=== PATIENT | male | born 1980 | race Caucasian/White ===

== ENCOUNTER 2022-08-15 13:46 | Emergency (ER) | payer OTHER ==
--- NOTE | 2022-08-15 16:24 | XRAY ---
Indication: Headache, dizziness, and blurred vision following head injury 4 days ago. Multiple contiguous axial images obtained through the head without contrast. Comparison: None Normal appearing brain parenchyma, ventricles, and bony calvarium. Moderate mucosal thickening right maxillary sinus with fluid leveling. Remaining visualized paranasal sinuses and mastoid air cells are clear. Impression: Normal CT head without contrast exam. Incidental right maxillary sinus disease.
[2022-08-15 16:27] VITALS: BP 106/58; PULSE 74; O2SAT 95
--- NOTE | 2022-08-15 19:23 | ERPHSYRPT ---
- History of Present Illness Time Seen by Provider: 08/15/22 15:00 Source: patient Exam Limitations: no limitations Patient Subjective Stated Complaint: PT HERE FOR DIZZINESS, HEADACHE, SINCE MONDAY AFTER A TREE BROKE AND LIMB FELL ON HIM, HE ALSO WAS HIT IN HEAD WITH SAW, HE WAS SEEN AT [facility] AND STATES HE MESSED UP HES [facility] SHOULDER Triage Nursing Assessment: PT ALERT, OREINTED, RESP EASY, WAS EATING A SNACK IN WAITING ROOM, WALKED BACK, GAIT STEADY, FACE MASK IN PLACE, HAS LEFT ARM IN A SLING, ABRASION SCABED OVER TO TOP OF HEAD Physician History: Patient a 42-year-old male presents to our ED for CT head. 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 Patient cut a log under pressure which recalled and hit his head and his left shoulder. Patient went to an [facility]. X-ray of left shoulder revealed a acromial clavicular injury. However they did not CT his head. Patient is upset that his head was not CT. Patient is complaining of mild low-grade headache and mild dizziness difficulty sleeping. Patient symptoms are consistent with a concussion. No loss of consciousness. No neck pain. Cervical spine cleared clinically. Patient has no other complaints. Symptoms are mild to moderate in intensity. Patient declined pain medication. He voices no other complaints or concerns at this time. Patient declined pain medication. Portions of this note were created with voice recognition technology. There may be grammatical, spelling, punctuation or sound alike errors Timing/Duration: day(s) Severity: moderate (5 days ago) Modifying Factors: Improves With: nothing Associated Symptoms: denies symptoms Allergies/Adverse Reactions: No Known Drug Allergies Allergy (Unverified 08/15/22 14:51) Home Medications: Sertraline HCl 1 ea DAILY 08/15/22 [History] Hx Tetanus, Diphtheria Vaccination/Date Given: No Hx Influenza Vaccination/Date Given: No Hx Pneumococcal Vaccination/Date Given: Yes Immunizations Up to Date: Yes Travel Risk - International Travel Have you traveled outside of the country in past 3 weeks: No - Coronavirus Screening Are you exhibiting any of the following symptoms?: No Close contact with a COVID-19 positive Pt in past 14-21 Days: No - Vaccine Status Have you recieved a Covid-19 vaccination: No - Review of Systems Constitutional: No Symptoms, No Fever, No Chills Eyes: No Symptoms Ears, Nose, & Throat: No Symptoms Respiratory: No Symptoms, No Cough, No Dyspnea Cardiac: No Symptoms, No Chest Pain, No Edema, No Syncope Abdominal/Gastrointestinal: No Symptoms, No Abdominal Pain, No Nausea, No Vomiting, No Diarrhea Genitourinary Symptoms: No Symptoms, No Dysuria Musculoskeletal: No Symptoms, No Back Pain, No Neck Pain Skin: No Symptoms, No Rash Neurological: No Symptoms, No Dizziness, No Focal Weakness, No Sensory Changes Psychological: No Symptoms Endocrine: No Symptoms Hematologic/Lymphatic: No Symptoms Immunological/Allergic: No Symptoms All Other Systems: Reviewed and Negative - Past Medical History Pertinent Past Medical History: No - Past Surgical History Past Surgical History: No - Social History Smoking Status: Current every day smoker Exposure to second hand smoke: Yes Drug Use: none Patient Lives Alone: Yes - Nursing Vital Signs Nursing Vital Signs: Initial Vital Signs Temperature 96.6 F 08/15/22 14:42 Pulse Rate 89 08/15/22 14:42 Respiratory Rate 18 08/15/22 14:42 Blood Pressure 122/78 08/15/22 14:42 O2 Sat by Pulse Oximetry 99 08/15/22 14:42 Pain Scale Pain Intensity 5 - Physical Exam General Appearance: no apparent distress, alert Eye Exam: PERRL/EOMI, eyes nml inspection Ears, Nose, Throat Exam: normal ENT inspection, TMs normal, pharynx normal, moist mucous membranes Neck Exam: normal inspection, non-tender, supple, full range of motion Respiratory Exam: normal breath sounds, lungs clear, airway intact, No respiratory distress Cardiovascular Exam: regular rate/rhythm, normal heart sounds, normal peripheral pulses Gastrointestinal/Abdomen Exam: soft, normal bowel sounds, No tenderness, No mass Back Exam: normal inspection, normal range of motion, No CVA tenderness, No vertebral tenderness Extremity Exam: normal inspection, normal range of motion, pelvis stable Neurologic Exam: alert, oriented x 3, cooperative, normal mood/affect, nml cerebellar function, nml station & gait, sensation nml, No motor deficits Skin Exam: normal color, warm, dry, No rash Lymphatic Exam: No adenopathy SpO2 Interpretation: normal SpO2: 95 O2 Delivery: Room Air - Course Nursing assessment & vital signs reviewed: Yes - CT Exams Head CT Interpretation: Tele-radiologist Report (Mild right maxillary sinus disease. Otherwise negative CT head.) Ordered Tests: Active Orders 24 hr Category Date Time Status HEAD WITHOUT CONTRAST [CT] Stat Exams 08/15/22 15:05 Completed - Progress Progress: improved Progress Note: Patient reassessed. He is well. Vital stable. CT head negative. Patient likely experiencing a concussion. Will discharge home. Patient agrees to follow-up with primary care doctor within 48 hours for evaluation. Patient given verbal instructions on concussion precautions. Portions of this note were created with voice recognition technology. There may be grammatical, spelling, punctuation or sound alike errors 08/15/22 19:22 Counseled pt/family regarding: diagnosis, need for follow-up, rad results - Departure Departure Disposition: Home Clinical Impression: Concussion Condition: Stable Critical Care Time: No Referrals: DOCTOR,NO FAMILY [Primary Care Provider] - Follow up/PCP as directed CHANDA ZAYAS DO [ACTIVE STAFF] - Follow up/PCP as directed Additional Instructions: Discharge/Care Plan KALYANI ARRIAGA was seen on 08/15/22 in the Emergency Room. The patient was counseled regarding Diagnosis,Lab results, Imaging studies, need for follow up and when to return to the Emergency Room. Prescriptions given: Discharge Note I have spoken with the patient and/or caregivers. I have explained the patient's condition, diagnosis and treatment plan based on the information available to me at this time. I have answered the patient's and/or caregiver's questions and addressed any concerns. The patient and/or caregivers have as good understanding of the patient's diagnosis, condition and treatment plan as can be expected at this point. The vital signs have been stable. The patient's condition is stable and appropriate for discharge from the emergency department. The patient will pursue further outpatient evaluation with the primary care physician or other designated or consulting physician as outlined in the discharge instructions. The patient and/or caregivers are agreeable to this plan of care and follow-up instructions have been explained in detail. The patient and/or caregivers have received these instruction. The patient/and or caregivers are aware that any significant change in condition or worsening of symptoms should prompt an immediate return to this or the closest emergency department or call 911.
== END 2022-08-15 19:24 | disposition home or self-care (01) ==
LOC: ED 13:46
DX: S06.0X0A Concussion without loss of consciousness, initial encounter (principal); W20.8XXA Other cause of strike by thrown, projected or falling object, initial encounter; Y99.0 Civilian activity done for income or pay; R51.9 Headache, unspecified; R42 Dizziness and giddiness; Z79.899 Other long term (current) drug therapy; Z28.310 Unvaccinated for COVID-19; Z72.0 Tobacco use
CPT/HCPCS: 70450; 99283